=== PATIENT | male | born 2000 | race Caucasian/White ===

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

== ENCOUNTER → 2022-11-13 | Outpatient (CLI) | payer OTHER, MEDICAID ==
[~2022-11-13] MED LIST changes: -NS 1,000 ML IV ONE
== END ==
LOC: M ADAMS 14:40
PROVIDERS: ATTEND Physician Assistant Medical
DX: R42 Dizziness and giddiness (principal)

== ENCOUNTER → 2023-10-29 | Outpatient (REF) ==
[~2023-10-29] MED LIST changes: -AMIT25TA17 PO; +AMIT25TA19 PO
[2023-10-29 16:27] LABS: RSV AMPLIFICATION NEGATIVE (NEGATIVE)
== END ==
LOC: M EMP 15:05
PROVIDERS: ATTEND Family Medicine
DX: Z20.828 Contact with and (suspected) exposure to other viral communicable diseases (principal)

== ENCOUNTER → 2025-06-01 | Outpatient (REF) | payer OTHER ==
[2025-06-01 17:20] LABS: BASO # 0.0 10^3/uL (0.0-0.2); BASO % 0.6 % (0.0-1.0); EOS # 0.3 10^3/uL (0.0-0.5); EOS % 5.2 % (0.0-3.0); LYMPH # 2.1 10^3/uL (1.5-5.0); LYMPH % 33.6 % (24.0-44.0); MONO # 0.5 10^3/uL (0.0-0.8); MONO % 8.1 % (2.0-8.0); NEUTROPHILS # 3.2 10^3/uL (1.5-8.5); NEUTROPHILS % 52.3 % (36.0-66.0); PLATELET COUNT, AUTOMATED 226 10^3/uL (150-450)
[2025-06-01 17:45] LABS: ESTIMATED AVERAGE GLUCOSE 105.0 MG/DL (60-110)
[2025-06-01 17:50] LABS: TOTAL 25(OH) VITAMIN D 20.4 NG/ML (20.0-100.0)
[2025-06-01 17:51] LABS: ALT/SGPT 15 U/L (7.0-40); AST/SGOT 12 U/L (<34); CALCIUM LEVEL 10.0 MG/DL (8.5-10.1); CARBON DIOXIDE LEVEL 28 MMOL/L (20-31); CHLORIDE LEVEL 104 MMOL/L (98-107); CHOLESTEROL LEVEL 140 MG/DL (<200); CHOLESTEROL RISK RATIO 2.42 (<5); CREATININE FOR GFR 1.02 MG/DL (0.70-1.30); GLOMERULAR FILTRATION RATE > 90.0 (>60); LDL CHOLESTEROL 73.3 MG/DL (<100); NON-HDL-C 82.3 MG/DL; POTASSIUM SERUM 4.5 MMOL/L (3.5-5.1); SODIUM LEVEL 142 MMOL/L (136-145); TRIGLYCERIDES LEVEL 45 MG/DL (<150)
[2025-06-01 17:53] LABS: FREE T4 1.18 NG/DL (0.89-1.76)
== END ==
LOC: M SFHCADAM 15:02
PROVIDERS: ATTEND Physician Assistant Medical
DX: Z00.00 Encounter for general adult medical examination without abnormal findings (principal); K90.0 Celiac disease; F12.10 Cannabis abuse, uncomplicated; M24.9 Joint derangement, unspecified; L81.9 Disorder of pigmentation, unspecified; F15.20 Other stimulant dependence, uncomplicated; R00.2 Palpitations